=== PATIENT | male | born 1960 | race African-American/Black ===

== ENCOUNTER → 2025-04-09 | Day surgery (SDC) | payer MEDICARE ==
[2025-04-01 11:17] LABS: BASOPHILS % 0.3 % (0.0-1.0); EOSINOPHILS % 1.2 % (0.0-6.0); LYMPHOCYTES % 18.2 % (18.0-39.1); MONOCYTES % 8.2 % (4.4-11.3); NEUTROPHILS % 71.9 % (38.7-80.0); RED CELL DISTRIBUTION WIDTH 14.6 % (11.7-14.4)
[2025-04-01 11:31] LABS: INR 0.96
[2025-04-01 11:36] LABS: EST GLOMERULAR FILTRATION RATE 38.0 ML/MIN (>=60)
[~2025-04-09] MED LIST: ALLOPURINOL100 MG PO; ASPIRIN81 MG PO; ENTRESTO 49 MG1 EACH PO; GLIMEPIRIDE2 MG PO; JARDIANCE25 MG PO; LIDOCAINE HCL 2% LOCAL INJ 5 ML SDV VIAL INJ ONE; LIPITOR10 MG PO; METOPROLOL SUCC50 MG PO; PROPOFOL IV EMULSION 10 MG/ML 20 ML VIAL ONE
[2025-04-09] MEDS: LACTATED RINGER'S 1,000 ML ONE (08:24)
[2025-04-09] MEDS: DEXTROSE 5% 250ML 250 ML IV ONE (08:25)
[2025-04-09 11:29] VITALS: TEMP 97
[2025-04-09 11:50] VITALS: BP 185/94; PULSE 58; RESP 18; O2SAT 98
== END | disposition home or self-care (01) ==
LOC: OR 05:00
PROVIDERS: ATTEND Internal Medicine Gastroenterology
DX: Z09 Encounter for follow-up examination after completed treatment for conditions other than malignant neoplasm (principal); K63.5 Polyp of colon; Z86.0101 Personal history of adenomatous and serrated colon polyps; K64.1 Second degree hemorrhoids; Z83.719 Family history of colon polyps, unspecified; I12.9 Hypertensive chronic kidney disease with stage 1 through stage 4 chronic kidney disease, or unspecified chronic kidney disease; I50.9 Heart failure, unspecified; E11.22 Type 2 diabetes mellitus with diabetic chronic kidney disease; N18.9 Chronic kidney disease, unspecified; I48.91 Unspecified atrial fibrillation; I25.10 Atherosclerotic heart disease of native coronary artery without angina pectoris; Z95.1 Presence of aortocoronary bypass graft; I25.2 Old myocardial infarction; E78.5 Hyperlipidemia, unspecified; Q24.8 Other specified congenital malformations of heart; Z95.2 Presence of prosthetic heart valve; Z72.0 Tobacco use; I45.10 Unspecified right bundle-branch block; E66.9 Obesity, unspecified; Z68.34 Body mass index [BMI] 34.0-34.9, adult; Z71.3 Dietary counseling and surveillance; M06.9 Rheumatoid arthritis, unspecified; M19.91 Primary osteoarthritis, unspecified site; G89.29 Other chronic pain; M54.9 Dorsalgia, unspecified; M54.2 Cervicalgia; Z86.19 Personal history of other infectious and parasitic diseases; Z01.810 Encounter for preprocedural cardiovascular examination; Z01.812 Encounter for preprocedural laboratory examination; Z79.899 Other long term (current) drug therapy; Z79.82 Long term (current) use of aspirin
CPT/HCPCS: 36415 ×2; 45380; 80048; 82948; 85025; 85610; 85730; 93005; J2003; J2704; J7121